=== PATIENT | female | born 1985 | race Caucasian/White ===

== ENCOUNTER 2019-12-14 18:53 | Observation (INO) ==
[2019-12-14] MEDS ORDERED: ZOFRAN INJ 4 MG VIAL IVP PRN (19:28)
[2019-12-14 20:04] LABS: BASOPHILS # (AUTO) 0.1 X10^3/uL (0.0-0.1); BASOPHILS % (AUTO) 0.6 % (0.2-1.0); EOSINOPHILS # (AUTO) 0.1 x10^3/uL (0.0-0.2); EOSINOPHILS % (AUTO) 0.9 % (0.9-2.9); HEMATOCRIT 44.7 % (36.0-47.0); HEMOGLOBIN 15.7 g/dL (12.0-16.0); LYMPHOCYTES # (AUTO) 1.6 X10^3/uL (1.3-2.9); LYMPHOCYTES % (AUTO) 15.2 % (21.0-51.0); MEAN CORPUSCULAR HEMOGLOBIN 30.3 pg (27.0-34.0); MEAN CORPUSCULAR VOLUME 86.4 fL (80.0-100.0); MEAN PLATELET VOLUME 7.6 fL (7.4-11.0); MONOCYTES # (AUTO) 0.6 x10^3/uL (0.3-0.8); MONOCYTES % (AUTO) 6.3 % (0.0-13.0); NEUTROPHILS # (AUTO) 7.9 x10^3/uL (2.2-4.8); PLATELET COUNT 235 X10^3/uL (150.0-450.0); RED BLOOD COUNT 5.18 X10^6/uL (3.5-5.4); RED CELL DISTRIBUTION WIDTH 12.6 % (11.6-16.5); WHITE BLOOD COUNT 10.3 X10^3/uL (3.6-10.0)
[2019-12-14 20:17] LABS: ALANINE AMINOTRANSFERASE 44 Units/L (12-78); ALKALINE PHOSPHATASE 95 Units/L (46-116); ASPARTATE AMINO TRANSFERASE 34 Units/L (15-37); BLOOD UREA NITROGEN 15 mg/dL (7-18); CALCIUM 9.6 mg/dL (8.5-10.1); CARBON DIOXIDE 26.7 mmol/L (21-32); CHLORIDE 104 mmol/L (98-107); CREATININE 1.03 mg/dL (0.55-1.02); SODIUM 141 mmol/L (136-145); TOTAL PROTEIN 8.3 g/dL (6.4-8.2); eGFR NON BLACK RACES > 60 (>60)
[2019-12-14 20:22] LABS: BILIRUBIN,URINE NEGATIVE (NEGATIVE); BLOOD/HEMOGLOBIN,URINE 3+ (NEGATIVE); GLUCOSE, URINE NEGATIVE (NEGATIVE); KETONES,URINE NEGATIVE (NEGATIVE); LEUKOCYTE ESTERASE ,URINE NEGATIVE (NEGATIVE); NITRITES,URINE NEGATIVE (NEGATIVE); PROTEIN,URINE NEGATIVE (NEGATIVE); UROBILINOGEN,URINE NORMAL (NORMAL)
[2019-12-14 20:32] LABS: APPEARANCE,URINE CLEAR (CLEAR); BACTERIA,URINE NEGATIVE /HPF (NEGATIVE); COLOR,URINE STRAW (YELLOW); RBC,URINE 0-2 /HPF (0-3); SQUAMOUS EPITHELIAL CELL,UR RARE /HPF (NEGATIVE)
--- NOTE | 2019-12-14 21:00 | RAD ---
Acute abdomen series three viewsIndication: Left abdomen pain and back painFINDINGSThere is no pneumothorax or effusion. There is no consolidation. Heart size is normal. There is no free air or pneumatosis. No dilated loop of small bowel. Gas stool are seen in the colon. There is calcific density projecting near the left renal pelvis. This is a 1 centimeter stone.IMPRESSION1. Left renal stone suspected. Hydronephrosis cannot be excluded by this study. Ultrasound can best characterize as needed.2. No high-grade obstruction, free air or pneumatosis.Electronically signed by: SERJIO FRANKS (Dec 14, 2019 20:58:20)
[2019-12-14] MEDS: NORVASC TAB 5 MG PO SCH (21:26)
[2019-12-14] MEDS: TORADOL 30 MG VIAL IVP PRN (21:26)
[2019-12-14] MEDS: NS 1000 ML 1,000 ML IV SCH (21:26)
[2019-12-14 22:33] VITALS: BMI 26.5
[2019-12-15] MEDS: NS 1000 ML 1,000 ML IV SCH ×4 (04:33→23:30)
[2019-12-15] MEDS: TORADOL 30 MG VIAL IVP PRN ×3 (05:06→20:30)
[2019-12-15 06:11] LABS: BASOPHILS % (AUTO) 0.6 % (0.2-1.0); EOSINOPHILS # (AUTO) 0.1 x10^3/uL (0.0-0.2); EOSINOPHILS % (AUTO) 1.5 % (0.9-2.9); HEMOGLOBIN 13.3 g/dL (12.0-16.0); LYMPHOCYTES # (AUTO) 1.5 X10^3/uL (1.3-2.9); LYMPHOCYTES % (AUTO) 17.1 % (21.0-51.0); MEAN CORPUSCULAR HEMOGLOBIN 30.3 pg (27.0-34.0); MEAN CORPUSCULAR VOLUME 86.6 fL (80.0-100.0); MEAN PLATELET VOLUME 7.5 fL (7.4-11.0); MONOCYTES # (AUTO) 0.7 x10^3/uL (0.3-0.8); MONOCYTES % (AUTO) 8.3 % (0.0-13.0); NEUTROPHILS # (AUTO) 6.3 x10^3/uL (2.2-4.8); NEUTROPHILS % (AUTO) 72.5 % (42.0-75.0); PLATELET COUNT 192 X10^3/uL (150.0-450.0); RED BLOOD COUNT 4.39 X10^6/uL (3.5-5.4); RED CELL DISTRIBUTION WIDTH 12.2 % (11.6-16.5); WHITE BLOOD COUNT 8.7 X10^3/uL (3.6-10.0)
[2019-12-15 06:20] LABS: ALANINE AMINOTRANSFERASE 33 Units/L (12-78); ALBUMIN 3.6 g/dL (3.4-5.0); ALKALINE PHOSPHATASE 73 Units/L (46-116); ASPARTATE AMINO TRANSFERASE 23 Units/L (15-37); BLOOD UREA NITROGEN 12 mg/dL (7-18); CALCIUM 8.5 mg/dL (8.5-10.1); CARBON DIOXIDE 25.8 mmol/L (21-32); CHLORIDE 107 mmol/L (98-107); CREATININE 0.99 mg/dL (0.55-1.02); SODIUM 140 mmol/L (136-145); TOTAL PROTEIN 6.4 g/dL (6.4-8.2); eGFR NON BLACK RACES > 60 (>60)
--- NOTE | 2019-12-15 10:46 | DR.H&P ---
H&P - History & Physical for Day of: H&P Date: 12/14/19 - Chief Complaint Chief Complaint: ABDOMINAL PAIN, LOWER BACK PAIN - History of Present Illness History of Present Illness: IS A 34 YEAR OLD PATIENT OF OURS WHO WE ADMITTED TO THE HOSPITAL A DIRECT ADMISSION DUE TO COMPLAINTS OF SEVERE ABDOMINAL PAIN AND LOWER BACK PAIN. SYMPTOMS STARTED TWO DAYS PRIOR AND HAVE PROGRESSIVELY GOTTEN WORSE. SHE DENIED NAUSEA, VOMITING, URGENCY, OR PAIN ON URINATION. ON ARRIVAL, VITALS WERE 98.6-87-18-100%-133/82. LABS WERE OBTAINED. ABNORMAL LAB VALUES INCLUDED THE FOLLOWING: WBC 10.3, POTASSIUM 3.4, CREATININE 1.03, TOTAL PROTEIN 8.3. URINALYSIS REVEALED: WBC NONE SEEN, RBC 0-2, OCCULT BLOOD 3+, BACTERIA NEGATIVE, LEUKOCYTES NEGATIVE. BLOOD AND URINE CULTURES WERE SET UP. AN ABDOMEN XRAY WAS OBTAINED AND REVEALED: 1. Left renal stone suspected. Hydronephrosis cannot be excluded by this study. Ultrasound can best characterize as needed. 2. No high-grade obstruction, free air or pneumatosis. SHE WAS STARTED ON NS AT 100 ML/HR, ZOFRAN 4MG IV Q8H PRN, NORVASC 5MG PO DAILY, AND TORADOL 30MG IV Q8H PRN. WE WILL OBTAIN AN ABDOMEN/PELVIS CT WITHOUT CONTRAST THIS MORNING. OTHERWISE, WE WILL FOLLOW UP WITH AM LABS AND CONTINUE TO MONITOR. - Past Medical History Past Medical History: Hypertension - Past Surgical History Surgical History: G[employer] Surgery, Other - Family History Family Medical History: Diabetes Mellitus, Heart Failure, Hypertension - Social History Alcohol Use: None Drug Use: None - Medications Home Medications: chicken derived Allergy (Verified 12/17/18 09:30) cocoa Allergy (Verified 12/17/18 09:30) rice Allergy (Verified 12/17/18 09:30) SEASOME SEED Allergy (Uncoded 12/17/18 09:30) CONTINUE taking the following medications amlodipine [Norvasc] 5 mg PO DAILYHS 12/14/19 [History] - Review of Systems Constitutional: No Symptoms Reported Eyes: No Symptoms Reported ENT: No Symptoms Reported Respiratory: No Symptoms Reported Cardiovascular: No Symptoms Reported Gastrointestinal: Abdominal Pain. denies: Nausea, Vomiting, Diarrhea, Constipation Genitourinary: No Symptoms Reported Musculoskeletal: Back Pain Skin: No Symptoms Reported Neurological: No Symptoms Reported - Physical Exam Vital Signs: Temperature 98.6 F Pulse Rate [Left Radial] 70 Respiratory Rate 20 Blood Pressure [Left Arm] 117/74 Blood Pressure 142/85 O2 Sat by Pulse Oximetry 98 Oriented: Normal Eyes: Normal Ear: Normal Nose: Normal Throat: Normal Respiratory: Clear Throughout Cardiovascular: Normal : Normal Auscultation: Bowel Sounds: Normal Palpation: Normal Tenderness: Suprapubic Skin: Normal Musculoskeletal: Back:Lumbar Psychiatric: Normal Mood Description: Calm Affect: Normal Speech Pattern: Clear - Assessment/Plan (1) Abdominal pain Qualifiers: Abdominal location: lower abdomen, unspecified Qualified Code(s): R10.30 - Lower abdominal pain, unspecified Status: Acute Plan: OBTAIN ABDOMEN/PELVIS CT WITHOUT CONTRAST TODAY, NS AT 100 ML/HR, ZOFRAN 4MG IV Q8H PRN, NORVASC 5MG PO DAILY, AND TORADOL 30MG IV Q8H PRN - Allergies Allergies/Adverse Reactions: Allergies Allergy/AdvReac Type Severity Reaction Status Date / Time chicken derived Allergy Verified 12/17/18 09:30 cocoa Allergy Verified 12/17/18 09:30 rice Allergy Verified 12/17/18 09:30 SEASOME SEED Allergy Uncoded 12/17/18 09:30
--- NOTE | 2019-12-15 10:57 | CT ---
HISTORYLT FLANK PAIN, HEMATURIASTUDYCT ABDOMEN/PELVIS W/O IV CONCOMPARISONX-ray 12/14/2019TECHNIQUEMultiple axial images of the abdomen and pelvis were obtained from the lung bases to the pubic symphysis without the administration of IV contrast. Dose reduction techniques including Automated Exposure Control (AEC) and adjustment of mA and kV were utilized.FINDINGSThe visualized portions of the lung bases are unremarkable .The liver appears normal. Spleen is minimally enlarged.Gallbladder is contracted without evidence of abnormality. No biliary ductal dilation.No pancreatic abnormality is seen.The adrenal glands appear normal.Enlarged left kidney with perinephric streaky densities. Moderate left-sided hydronephrosis due to a 6.5 by 5.0 millimeter stone in the left UPJ. Nonobstructing 1 millimeter stone is seen in the mid left kidney. No right renal or ureteral stones are seen. Bladder appears normal.No bowel abnormalities are seen. Normal appendix is seen.Left ovarian cyst is suspected with mild adjacent free fluid. It measures 1.6 cm. Tiny calcification is seen in the anterior aspect of the uterine fundus and could be a small fibroid.Abdominal aorta is normal in size.No suspicious lymphadenopathy.No free air is seen.No acute bony abnormality is seen.IMPRESSION6.5 x 5.0 millimeter stone in the left UPJ causes moderate left-sided hydronephrosis.1.6 cm left ovarian cyst may have recently ruptured as there is mild free fluid in the left adnexal region.Electronically signed by: Vic Cano (Dec 15, 2019 10:55:50)
[2019-12-15] MEDS ORDERED: FLOMAX PO SCH (21:00)
[2019-12-16] MEDS: NORVASC TAB 5 MG PO SCH (03:38)
[2019-12-16] MEDS: NS 1000 ML 1,000 ML IV SCH (05:35)
[2019-12-16 06:07] LABS: BASOPHILS # (AUTO) 0.1 X10^3/uL (0.0-0.1); BASOPHILS % (AUTO) 0.7 % (0.2-1.0); EOSINOPHILS # (AUTO) 0.1 x10^3/uL (0.0-0.2); HEMATOCRIT 35.5 % (36.0-47.0); HEMOGLOBIN 12.3 g/dL (12.0-16.0); LYMPHOCYTES # (AUTO) 1.4 X10^3/uL (1.3-2.9); LYMPHOCYTES % (AUTO) 18.6 % (21.0-51.0); MEAN CORPUSCULAR HGB CONC 34.7 g/dL (33.0-35.0); MEAN CORPUSCULAR VOLUME 86.5 fL (80.0-100.0); MEAN PLATELET VOLUME 7.6 fL (7.4-11.0); MONOCYTES # (AUTO) 0.6 x10^3/uL (0.3-0.8); MONOCYTES % (AUTO) 8.2 % (0.0-13.0); NEUTROPHILS # (AUTO) 5.2 x10^3/uL (2.2-4.8); NEUTROPHILS % (AUTO) 70.5 % (42.0-75.0); PLATELET COUNT 192 X10^3/uL (150.0-450.0); RED CELL DISTRIBUTION WIDTH 12.6 % (11.6-16.5); WHITE BLOOD COUNT 7.3 X10^3/uL (3.6-10.0)
[2019-12-16 06:18] LABS: ALANINE AMINOTRANSFERASE 35 Units/L (12-78); ALKALINE PHOSPHATASE 71 Units/L (46-116); ASPARTATE AMINO TRANSFERASE 21 Units/L (15-37); BLOOD UREA NITROGEN 10 mg/dL (7-18); CALCIUM 8.2 mg/dL (8.5-10.1); CARBON DIOXIDE 24.5 mmol/L (21-32); CHLORIDE 110 mmol/L (98-107); SODIUM 142 mmol/L (136-145); eGFR NON BLACK RACES > 60 (>60)
[2019-12-16] MEDS: TORADOL 30 MG VIAL IVP PRN (06:28)
[2019-12-16 08:41] VITALS: BP 132/62
[2019-12-16] MEDS ORDERED: TYLENOL 325 MG TAB PO PRN (10:38)
== END 2019-12-16 11:50 | disposition home or self-care (01) ==
LOC: MED/SURG
PROVIDERS: ADMIT Internal Medicine; ATTEND Internal Medicine
DX: N13.2 Hydronephrosis with renal and ureteral calculous obstruction; Z79.899 Other long term (current) drug therapy; M54.5 Low back pain; N83.292 Other ovarian cyst, left side; I10 Essential (primary) hypertension; R10.30 Lower abdominal pain, unspecified
CPT/HCPCS: 36415; 74022; 74176; 80053; 81001; 83735; 85025; 87040; 87086; 96360; 96361; 96374; A4222; G0378; J1885; J7030